=== PATIENT | female | born 1950 | race Caucasian/White ===

== ENCOUNTER → 2016-07-22 | Outpatient (CLI) | payer MEDICARE ==
[~2016-07-22] MED LIST: ALBU18HF INH; ATOR20TA PO; ESTR1TAB7 PO; EXEN10PE SC; FERR325T20 PO; FLUT1DIS3 INH; GABA300C PO; GLIM1TAB2 PO; INSU100V8 SQ; LEVO150T PO; LEVO500T33 PO; LISI5TAB7 PO; METF100010 PO; OMEP20TA62 PO; SERT100T PO; TRAM50TA2 PO; [UNRECOGNIZED DRUG - OTHER]; [UNRECOGNIZED DRUG - OTHER] PO
== END | disposition home or self-care (01) ==
LOC: CARD 16:00
PROVIDERS: ATTEND Family Medicine
DX: J45.909 Unspecified asthma, uncomplicated (principal)
CPT/HCPCS: 94060; 94726; 94729

== ENCOUNTER → 2017-10-06 | Outpatient (CLI) | payer MEDICARE ==
[~2017-10-06] MED LIST changes: -EXEN10PE SC; +EXEN10PE3 SC; +FERR325T18 PO; -FERR325T20 PO; -LEVO500T33 PO; +LEVO500T47 PO
== END | disposition home or self-care (01) ==
LOC: CFH 12:04
PROVIDERS: ATTEND Licensed Practical Nurse
DX: Z12.31 Encounter for screening mammogram for malignant neoplasm of breast (principal); Z88.5 Allergy status to narcotic agent
CPT/HCPCS: 77067

== ENCOUNTER → 2018-03-03 | Outpatient (CLI) | payer MEDICARE | END | disposition home or self-care (01) | LOC: CFH 12:20 | PROVIDERS: ATTEND Nurse Practitioner | DX: J45.909 Unspecified asthma, uncomplicated (principal) | CPT/HCPCS: 71046 ==